=== PATIENT | female | born 2000 | race Caucasian/White ===

== ENCOUNTER 2018-11-28 11:21 | Emergency (ER) | payer BC, OTHER ==
[~2018-11-28] VITALS: Ht 162.6 cm; Wt 63.5 kg
[2018-11-28 12:12] LABS: Source, Urine Clean Catch
[2018-11-28 12:21] LABS: Bilirubin, Urine Neg (Neg); Blood, Urine 2+ (Neg); Glucose Qualitative, Urine Neg (Neg); Ketones, Urine 3+ (Neg); Leukocyte Esterase, Urine 1+ (Neg); Nitrite, Urine Neg (Neg); Protein, Urine 1+ (Neg); Urobilinogen, Urine 1+ (Normal)
[2018-11-28 12:43] LABS: Appearance, Urine Clear (Clear); Color, Urine Yellow (P-Yellow)
[2018-11-28 12:46] LABS: Bacteria Mod /hpf; Mucus Mod (0-Heavy); Squamous Epithelial Cells Mod /hpf (Few)
[2018-11-28] MEDS ORDERED: Cipro500 MG PO (12:49)
[2018-11-28] MEDS ORDERED: ONDA4ODT MM (12:50)
== END 2018-11-28 12:54 | disposition home or self-care (01) ==
LOC: ER 11:21
PROVIDERS: Physician Assistant
DX: N12 Tubulo-interstitial nephritis, not specified as acute or chronic (principal); R11.2 Nausea with vomiting, unspecified
CPT/HCPCS: 81001; 81025; 87086; 99284

== ENCOUNTER 2018-11-30 13:41 | Emergency (ER) | payer BC, OTHER ==
[~2018-11-30] VITALS: Ht 162.6 cm; Wt 63.5 kg
[~2018-11-30 13:41] MED LIST: Cipro500 MG PO; ONDA4ODT MM
[2018-11-30 14:53] LABS: Source, Urine Clean Catch
[2018-11-30 15:09] LABS: Bilirubin, Urine Neg (Neg); Blood, Urine Neg (Neg); Glucose Qualitative, Urine Neg (Neg); Ketones, Urine 3+ (Neg); Leukocyte Esterase, Urine Neg (Neg); Nitrite, Urine Neg (Neg); Protein, Urine Neg (Neg); Specific Gravity, Urine 1.015 (1.003-1.022); Urobilinogen, Urine 2+ (Normal)
[2018-11-30 15:27] LABS: Appearance, Urine Clear (Clear); Color, Urine Yellow (P-Yellow)
== END 2018-11-30 14:51 | disposition home or self-care (01) ==
LOC: ER 13:41
PROVIDERS: Physician Assistant
DX: M54.9 Dorsalgia, unspecified (principal); R51 Headache; Z79.899 Other long term (current) drug therapy
CPT/HCPCS: 81003; 99283